=== PATIENT | female | born 1985 | race Caucasian/White ===

== ENCOUNTER → 2020-07-05 07:51 | Outpatient (CLI) | payer OTHER ==
[2020-04-20 16:50] VITALS: BMI 29.9
[~2020-07-05 07:51] MED LIST: LEVO-T50 MCG PO; PRENAVITE1 TAB PO
== END | disposition home or self-care (01) ==
LOC: D.MRI 07:51
PROVIDERS: ATTEND Orthopaedic Surgery
DX: M25.562 Pain in left knee (principal)

== ENCOUNTER 2020-09-14 05:17 | Day surgery (SDC) | payer OTHER, BC ==
[~2020-09-14] VITALS: Ht 175.3 cm; Wt 89.4 kg
[~2020-09-14 05:17] MED LIST changes: +LEVO-T100 MCG PO; -LEVO-T50 MCG PO
[2020-09-14 05:53] LABS: HCG URINE NEGATIVE (NEGATIVE)
[2020-09-14 05:55] VITALS: BP 124/80; Ht 175.3 cm; Wt 89.4 kg
[2020-09-14 06:43] LABS: HEMATOCRIT 36.8 % (36.0-48.0); HEMOGLOBIN 12.5 g/dL (12-16); MCH 28.5 pg (26.0-34.0); MCHC 33.9 g/dL (31.0-37.0); RBC 4.39 10x6/uL (4.00-5.40); RDW 13.9 % (11.5-14.5); WBC 8.2 10x3/uL (4.8-10.8)
[2020-09-14] MEDS ORDERED: PERCOCET 10-321 EAC1 PO (06:57)
[2020-09-14] MEDS ORDERED: VISTARIL50 MG PO (06:57)
[2020-09-14] MEDS ORDERED: TORADOL10 MG PO (06:58)
[2020-09-14] MEDS ORDERED: ZOFRAN ODT4 MG/UDTAB PO (11:33)
--- NOTE | 2020-09-14 12:08 | NUR ---
1015 - PATIENT UP TO BATHROOM TO VOID. WBAT. IMMOBILIZER REMAINS IN PLACE TO LEFT LEG.
--- NOTE | 2020-09-14 12:08 | NUR ---
0945 - PATIENT COMPLAINING OF INCREASED PAIN. MEDICATED WITH OXYCODONE 10/325 ONE PO FOR RELIEF.
--- NOTE | 2020-09-14 12:09 | NUR ---
1025 - IV D/C'D WITH TIP INTACT. DISCHARGE INSTRUCTIONS COMPLETED.
--- NOTE | 2020-09-14 12:10 | NUR ---
1035 - PATIENT DISCHARGED VIA WHEELCHAIR TO PRIVATE CAR.
--- NOTE | 2020-09-15 08:28 | OP ---
PATIENT NAME: KAVITHA SUTHERLAND MEDICAL RECORD: [id number] :87 LOCATION:[facility] ADMISSION DATE: SURGEON: SHEMAR PRESLEY DO DATE OF OPERATION: 09/14/2020 PROCEDURE PERFORMED: Left knee arthroscopy with medial meniscal repair. PREOPERATIVE DIAGNOSIS: Left knee medial meniscal tear. POSTOPERATIVE DIAGNOSIS: Left knee medial meniscal tear. INDICATIONS: Ms. Sutherland is a 34-year-old female who injured herself while working. 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 Upon feeling the pop she had immediate pain on the medial side, had started to have clicking, popping and pain in the medial joint line. She had a workup and MRI done, showed a medial meniscal tear and she came to see me. I informed her that I could fix it as should would be at risk for retear, loss of motion of the knee, continued pain, need for further surgery, infection, bleeding, damage to nerves or vessels in the area and she signed the consent. SURGEON: Shemar Presley DO DESCRIPTION OF PROCEDURE: The patient was taken to the operative suite, laid in supine position, given general anesthetic and LMA was placed. The left lower extremity was then prepped and draped in sterile fashion. A timeout was performed. Everyone was in agreeance with the correct side, site, patient and procedure. She was given 2 grams of Ancef preoperatively. I then flexed the knee down, establish a lateral portal with 11-blade scalpel, brought the trocar into the joint. I inspected the suprapatellar pouch. No loose body seen in it. There was no chondromalacia on the patella. I then inspected the lateral gutter and medial gutter, and no loose bodies seen in it. I then flexed the knee down and established a medial portal with an 18-gauge spinal needle and 11-blade scalpel. I then brought a trocar, and then a probe. I then put a valgus stress on the extended knee to get into the back of the medial compartment. There was no loose body seen in it or cartilage damage; however, there was a tear off of the capsular wall between the posterior and middle horn of the meniscus. Noting that, I got the meniscal repairs to have ready. While I was waiting for that, I inspected the ACL and was in good repair. I then hmbncl-il-hccw'ed the knee and inspected the lateral joint. No loose body was seen in it. No meniscal tears or cartilage damage at all. I then switched portals, put the camera in the medial portal through the lateral portal, brought in the protective sled and the Fast-Fix. I then fashioned the meniscal tears in the white-white zone and the periphery to the capsule with a single Fast-Fix. After deploying both anchors, it cinched down very nicely. I then cut it and used the PowerPick to the medial and lateral portals after switching the camera, camera viewing portals and drilled out 4 to 5 holes in the notch, drawing pluripotent cells into the knee. I then turned the water off, the suction on, and removed the excess fluid from the knee and then injected with 0.25% Marcaine with epinephrine, approximately 4 mL in each and then García Saldana, certified surgical miller first closed the portal sites with 4-0 Monocryl in inverted interrupted fashion, placed Steri-Strips, Adaptic, 4 x 4, ABD, Webril, Polo wrap on the knee and ANNAMARIA hose stocking up the knee and then placed in a hinged knee brace locked at 0. She was then awakened and taken to recovery in stable condition. OPERATIVE REPORT [id number] KAVITHA SUTHERLAND BLOOD LOSS: Minimal. COMPLICATIONS: None. TRANSINT:[id number] Voice Confirmation ID: [id number] DOCUMENT ID: [id number] SHEMAR PRESLEY DO at 0828 CC: [id number] DICTATION DATE: 09/14/20 1136 DEMONSTRATOR KNITTING: 09/14/20 1244 [facility] 09/14/20 [facility] [address] [place] [address]
== END 2020-09-14 10:35 | disposition home or self-care (01) ==
LOC: D.OPS 05:17
PROVIDERS: Anesthesiology; ATTEND Orthopaedic Surgery
DX: S83.242A Other tear of medial meniscus, current injury, left knee, initial encounter (principal); X58.XXXA Exposure to other specified factors, initial encounter; M25.562 Pain in left knee